=== PATIENT | male | born 1965 ===

== ENCOUNTER 2022-05-23 13:26 | Emergency (ER) | payer SELFPAY ==
[2022-05-23] MEDS ORDERED: Dexamethasone 4 mg/ml Vial ONE (15:34)
== END 2022-05-23 15:27 | disposition home or self-care (01) ==
LOC: NAV ERS 13:26
DX: J06.9 Acute upper respiratory infection, unspecified (principal); I10 Essential (primary) hypertension
CPT/HCPCS: 71046; 87804; J1100